=== PATIENT | female | born 1950 ===

== ENCOUNTER 2018-04-01 09:37 | Day surgery (SDC) | payer BC ==
[2018-04-01] MEDS ORDERED: LIDOcaine 2% 5ml jelly ONE (10:07)
[2018-04-01] MEDS ORDERED: BUPR100T5 PO (15:27)
== END 2018-04-01 11:26 | disposition home or self-care (01) ==
LOC: WOUND CARE 09:37
PROVIDERS: ATTEND Surgery
PROC: 0JBR0ZZ Excision of Left Foot Subcutaneous Tissue and Fascia, Open Approach (ICD-10-PCS; principal; 2018-04-01)
DX: L97.522 Non-pressure chronic ulcer of other part of left foot with fat layer exposed (principal); M06.9 Rheumatoid arthritis, unspecified; T81.89XA Other complications of procedures, not elsewhere classified, initial encounter
CPT/HCPCS: 11042; 73620; A6021; A6206; A6212; A6446

== ENCOUNTER 2018-04-08 09:21 | Day surgery (SDC) | payer BC ==
[~2018-04-08 09:21] MED LIST: BUPR100T5 PO
[2018-04-08] MEDS ORDERED: CIPR-259 PO (15:53)
== END 2018-04-08 11:21 | disposition home or self-care (01) ==
LOC: WOUND CARE 09:21
PROVIDERS: ATTEND Surgery
DX: L97.522 Non-pressure chronic ulcer of other part of left foot with fat layer exposed (principal); M06.9 Rheumatoid arthritis, unspecified; T81.89XD Other complications of procedures, not elsewhere classified, subsequent encounter; Y83.8 Other surgical procedures as the cause of abnormal reaction of the patient, or of later complication, without mention of misadventure at the time of the procedure
CPT/HCPCS: 11042; 87070; 87075; 87077; 87102; 87176; 87186; A6021; A6206; A6212; A6446

== ENCOUNTER 2018-04-15 09:11 | Day surgery (SDC) | payer BC ==
[~2018-04-15 09:11] MED LIST changes: +CIPR-259 PO
[2018-04-15] MEDS ORDERED: LIDOcaine 2% 5ml jelly ONE (10:10)
[2018-04-15] MEDS ORDERED: LEVO750T21 PO (16:08)
== END 2018-04-15 11:08 | disposition home or self-care (01) ==
LOC: WOUND CARE 09:11
PROVIDERS: ATTEND Surgery
DX: T81.89XD Other complications of procedures, not elsewhere classified, subsequent encounter (principal); L97.522 Non-pressure chronic ulcer of other part of left foot with fat layer exposed; M06.9 Rheumatoid arthritis, unspecified; Y83.8 Other surgical procedures as the cause of abnormal reaction of the patient, or of later complication, without mention of misadventure at the time of the procedure
CPT/HCPCS: 11042; A6021; A6206; A6209; A6446

== ENCOUNTER 2018-04-22 09:14 | Day surgery (SDC) | payer BC ==
[~2018-04-22 09:14] MED LIST changes: -CIPR-259 PO; +LEVO750T21 PO
[2018-04-22] MEDS ORDERED: LIDOcaine/PRILOcaine 5gm cream TP ONE (10:00)
== END 2018-04-22 10:43 | disposition home or self-care (01) ==
LOC: WOUND CARE 09:14
PROVIDERS: ATTEND Surgery
DX: T81.89XD Other complications of procedures, not elsewhere classified, subsequent encounter (principal); L97.522 Non-pressure chronic ulcer of other part of left foot with fat layer exposed; I83.025 Varicose veins of left lower extremity with ulcer other part of foot; M06.9 Rheumatoid arthritis, unspecified; Y83.8 Other surgical procedures as the cause of abnormal reaction of the patient, or of later complication, without mention of misadventure at the time of the procedure
CPT/HCPCS: 11042; A6021; A6206; A6209

== ENCOUNTER 2018-05-06 09:20 | Day surgery (SDC) | payer BC ==
[~2018-05-06 09:20] MED LIST changes: -LEVO750T21 PO
[2018-05-06] MEDS ORDERED: LIDOcaine/PRILOcaine 5gm cream TP ONE (11:06)
== END 2018-05-06 11:43 | disposition home or self-care (01) ==
LOC: WOUND CARE 09:20
PROVIDERS: ATTEND Surgery
DX: T81.89XD Other complications of procedures, not elsewhere classified, subsequent encounter (principal); L97.522 Non-pressure chronic ulcer of other part of left foot with fat layer exposed; I83.025 Varicose veins of left lower extremity with ulcer other part of foot; M06.9 Rheumatoid arthritis, unspecified; Y83.8 Other surgical procedures as the cause of abnormal reaction of the patient, or of later complication, without mention of misadventure at the time of the procedure
CPT/HCPCS: 11042; A6021; A6206; A6209; A6446

== ENCOUNTER 2018-05-13 09:19 | Day surgery (SDC) | payer BC ==
[2018-05-13] MEDS ORDERED: LIDOcaine/PRILOcaine 5gm cream TP ONE (10:57)
== END 2018-05-13 11:56 | disposition home or self-care (01) ==
LOC: WOUND CARE 09:19
PROVIDERS: ATTEND Surgery
DX: T81.89XD Other complications of procedures, not elsewhere classified, subsequent encounter (principal); L97.522 Non-pressure chronic ulcer of other part of left foot with fat layer exposed; I83.025 Varicose veins of left lower extremity with ulcer other part of foot; M06.9 Rheumatoid arthritis, unspecified; Y83.8 Other surgical procedures as the cause of abnormal reaction of the patient, or of later complication, without mention of misadventure at the time of the procedure
CPT/HCPCS: 11042; A6021; A6209

== ENCOUNTER 2018-05-20 08:30 | Day surgery (SDC) | payer BC ==
[2018-05-20] MEDS ORDERED: LIDOcaine/PRILOcaine 5gm cream TP ONE (09:47)
== END 2018-05-20 10:29 | disposition home or self-care (01) ==
LOC: WOUND CARE 08:30
PROVIDERS: ATTEND Surgery
DX: T81.89XD Other complications of procedures, not elsewhere classified, subsequent encounter (principal); L97.522 Non-pressure chronic ulcer of other part of left foot with fat layer exposed; I83.025 Varicose veins of left lower extremity with ulcer other part of foot; M06.9 Rheumatoid arthritis, unspecified; Y83.8 Other surgical procedures as the cause of abnormal reaction of the patient, or of later complication, without mention of misadventure at the time of the procedure
CPT/HCPCS: 11042; A6021; A6222; A6446

== ENCOUNTER 2018-05-27 08:20 | Day surgery (SDC) | payer BC ==
[2018-05-27] MEDS ORDERED: LIDOcaine/PRILOcaine 5gm cream TP ONE (09:43)
== END 2018-05-27 10:08 | disposition home or self-care (01) ==
LOC: WOUND CARE 08:20
PROVIDERS: ATTEND Surgery
DX: T81.89XD Other complications of procedures, not elsewhere classified, subsequent encounter (principal); L97.522 Non-pressure chronic ulcer of other part of left foot with fat layer exposed; I83.025 Varicose veins of left lower extremity with ulcer other part of foot; M06.9 Rheumatoid arthritis, unspecified; Y83.8 Other surgical procedures as the cause of abnormal reaction of the patient, or of later complication, without mention of misadventure at the time of the procedure
CPT/HCPCS: 97597; A6021; A6206; A6446